=== PATIENT | male | born 1985 | race Hispanic/Latino ===

== ENCOUNTER 2018-02-24 08:34 | Emergency (ER) | payer BC, SELFPAY ==
[2018-02-24] MEDS ORDERED: TETRACAINE HCL 0.5% 2ML OPTH ONE (09:24)
[2018-02-24] MEDS ORDERED: FLUORESCEIN SODIUM 0.6 MG/WRAP ONE (09:24)
--- NOTE | 2018-02-24 10:38 | EDPHYS ---
Physician Documentation [facility] Name: Ok Koehler Age: 32 yrs Sex: Male : 1985 Arrival Date: 02/24/2018 Time: 08:36 Bed 13 Private MD: ED Physician Willy Harper HPI: 02/24 10:35 This 32 yrs old Male presents to ER via Ambulatory with complaints of Chemical pm1 Exposure In Right Eye. 10:35 The patient is experiencing pain, redness, to the right eye. Onset: The pm1 symptoms/episode began/occurred yesterday, at 16:00. Duration: the symptoms are continuous. Aggravated by nothing. Alleviated by eye flush, Rubbing eye. Associated signs and symptoms: Pertinent negatives: vision change. Patient wears glasses. Patient was cleaning a pipe with a water hose. Patient was wearing a helmet, eye charles and protective clothing. The water with chemical splashed to the top of his helmet and dripped down on to his face. Exposure at 1600 yesterday. company reports acid chemicals present in pipe. Patient washed his eyes immediately. No change in vision. Patient has been placing some of his mother's gentamycin eye drops in his right eye. No swelling, complaining of redness to right eye. Historical: - Allergies: 08:44 No Known Allergies; aa5 - PMHx: 08:44 Hypothyroidism; aa5 - PSHx: 08:44 Cholecystectomy; aa5 - Immunization history:: Adult Immunizations unknown. - Social history:: Smoking status: Patient/guardian denies using tobacco. ROS: 10:35 Constitutional: Negative for fever, chills, and weight loss. pm1 10:35 ENT: Negative for injury, pain, and discharge, Neck: Negative for injury, pain, and swelling, Cardiovascular: Negative for chest pain, palpitations, and edema, Respiratory: Negative for shortness of breath, cough, wheezing, and pleuritic chest pain, Abdomen/GI: Negative for abdominal pain, nausea, vomiting, diarrhea, and constipation, Back: Negative for injury and pain, MS/Extremity: Negative for injury and deformity, Skin: Negative for injury, rash, and discoloration, Neuro: Negative for headache, weakness, numbness, tingling, and seizure. 10:35 Eyes: Positive for pain, redness, of the right eye, Negative for blurry vision, swelling, tearing, vision loss, visual disturbance. Exam: 10:35 Visual Acuity: I have reviewed the nursing documentation. pm1 10:35 Constitutional: This is a well developed, well nourished patient who is awake, alert, and in no acute distress. Head/Face: Normocephalic, atraumatic. 10:35 ENT: Nares patent. No nasal discharge, no septal abnormalities noted. Tympanic membranes are normal and external auditory canals are clear. Oropharynx with no redness, swelling, or masses, exudates, or evidence of obstruction, uvula midline. Mucous membranes moist. Neck: Trachea midline, no thyromegaly or masses palpated, and no cervical lymphadenopathy. Supple, full range of motion without nuchal rigidity, or vertebral point tenderness. No Meningismus. Chest/axilla: Normal chest wall appearance and motion. Nontender with no deformity. No lesions are appreciated. Cardiovascular: Regular rate and rhythm with a normal S1 and S2. No gallops, murmurs, or rubs. Normal PMI, no JVD. No pulse deficits. Respiratory: Lungs have equal breath sounds bilaterally, clear to auscultation and percussion. No rales, rhonchi or wheezes noted. No increased work of breathing, no retractions or nasal flaring. Abdomen/GI: Soft, non-tender, with normal bowel sounds. No distension or tympany. No guarding or rebound. No evidence of tenderness throughout. Skin: Warm, dry with normal turgor. Normal color with no rashes, no lesions, and no evidence of cellulitis. MS/ Extremity: Pulses equal, no cyanosis. Neurovascular intact. Full, normal range of motion. 10:35 Eyes: Periorbital structures: appear normal, Pupils: no acute changes, equal, round, and reactive to light and accomodation, Extraocular movements: intact throughout, Conjunctiva: injected, in the right eye, Corneas: abrasion, is not appreciated, foreign body, is not appreciated, a fluorescein strip employed to appreciate the findings, Lids and lashes: appear normal, no acute changes, no evidence of trauma. 10:35 Neuro: Orientation: is normal, Motor: is normal, moves all fours, Gait: is steady, at a normal pace, without difficulty. 10:35 Eyes: Examination of the other eye reveals no obvious gross abnormality, Prior to pm1 irrigation of right eye with normal saline 500 mL, pH of right eye 7.0. Vital Signs: 08:45 BP 131 / 85; Pulse 89; Resp 16 S; Temp 98.3(TE); Pulse Ox 97% on R/A; aa5 Visual Acuity: 09:28 Left Eye Visual acuity 20/15, ; Right Eye Visual acuity 20/15, ; Both Eyes Visual ph acuity 20/15; With Lenses; MDM: 08:50 Patient medically screened. pm1 10:35 Data reviewed: vital signs. Data interpreted: Pulse oximetry: on room air is 97 %. pm1 Interpretation: normal. Counseling: I had a detailed discussion with the patient and/or guardian regarding: the historical points, exam findings, and any diagnostic results supporting the discharge/admit diagnosis, the need for outpatient follow up, an opthalmologist, to return to the emergency department if symptoms worsen or persist or if there are any questions or concerns that arise at home. 02/24 09:04 Order name: Visual Acuity; Complete Time: 09:26 pm1 02/24 09:04 Order name: Eye Tray; Complete Time: 09:27 pm1 02/24 09:04 Order name: Fluoresene Opth strip; Complete Time: 09:28 pm1 Administered Medications: 09:40 Drug: Tetracaine Drops 0.5 % 1 drops Route: Ophthalmic; Site: right eye; ph 10:53 Not Given (Patient Refused): Tetanus-Diphtheria Toxoid Adult 0.5 ml IM once ph Disposition: 13:02 Co-signature as Attending Physician, Willy Harper MD I agree with the assessment and abida plan of care. Disposition: 02/24/18 10:38 Discharged to Home. Impression: Ocular pain, right eye - chemical exposure to right eye. - Condition is Stable. - Discharge Instructions: Conjunctivitis, Chemical. - Prescriptions for Gentamicin 0.3 % (3 mg/gram) Ophthalmic Ointment - apply 0.5 inch by OPHTHALMIC route every 8 hours; 1 tube. - Work release form, Medication Reconciliation Form, Thank You Letter, Antibiotic Education form. - Follow up: Ramon Galo MD; When: 1 - 2 days; Reason: Recheck today's complaints, Continuance of care, Re-evaluation by your physician. - Problem is new. - Symptoms have improved. Signatures: Willy Harper MD MD cha Calderon, Audri, RN RN aa5 Isadora Gamble RN RN ph Alvin Medrano, CHERIE TUBULAR SPLITTING MACHINE TENDER pm1 Corrections: (The following items were deleted from the chart) 10:54 10:38 02/24/2018 10:38 Discharged to Home. Impression: Ocular pain, right eye - ph chemical exposure to right eye. Condition is Stable. Forms are Medication Reconciliation Form, Thank You Letter, Antibiotic Education, Prescription Opioid Use. Follow up: Ramon Galo; When: 1 - 2 days; Reason: Recheck today's complaints, Continuance of care, Re-evaluation by your physician. Problem is new. Symptoms have improved. pm1
--- NOTE | 2018-02-24 10:38 | ER ---
Nurse's Notes [facility] Name: Ok Koehler Age: 32 yrs Sex: Male : 1985 Arrival Date: 02/24/2018 Time: 08:36 Bed 13 Private MD: Diagnosis: Ocular pain, right eye-chemical exposure to right eye Presentation: 02/24 08:42 Presenting complaint: Patient states: "I was hydro blasting at work and I got some kind aa5 of acid into my right eye". Pt reports incident occurred yesterday around 1600. Pt states "sometimes my vision is blurry because I feel like there is something in it". Transition of care: patient was not received from another setting of care. Onset of symptoms was February 2018. Initial Sepsis Screen: Does the patient meet any 2 criteria? No. Patient's initial sepsis screen is negative. Does the patient have a suspected source of infection? No. Patient's initial sepsis screen is negative. Care prior to arrival: None. 08:42 Method Of Arrival: Ambulatory aa5 08:42 Acuity: WANDY 3 aa5 Historical: - Allergies: 08:44 No Known Allergies; aa5 - PMHx: 08:44 Hypothyroidism; aa5 - PSHx: 08:44 Cholecystectomy; aa5 - Immunization history:: Adult Immunizations unknown. - Social history:: Smoking status: Patient/guardian denies using tobacco. Screenin:57 Abuse screen: Denies threats or abuse. Denies injuries from another. Nutritional ph screening: No deficits noted. Tuberculosis screening: No symptoms or risk factors identified. Fall Risk None identified. Assessment: 08:56 General: Appears in no apparent distress. comfortable, Behavior is calm, cooperative, ph appropriate for age. Pain: Complains of pain in right eye. Neuro: Level of Consciousness is awake, alert, obeys commands, Oriented to person, place, time, situation. Cardiovascular: Capillary refill < 3 seconds Patient's skin is warm and dry. Respiratory: Airway is patent Respiratory effort is even, unlabored. GI: No signs and/or symptoms were reported involving the gastrointestinal system. EENT: Reports blurred vision in right eye pain in right eye. Derm: Skin is intact, is healthy with good turgor, Skin is pink, warm \\T\\ dry. Musculoskeletal: Circulation, motion, and sensation intact. Range of motion: limited in all extremities. 10:15 Reassessment: Patient appears in no apparent distress at this time. Patient and/or ph family updated on plan of care and expected duration. Pain level reassessed. Patient is alert, oriented x 3, equal unlabored respirations, skin warm/dry/pink. Pt resting quietly w/ eyes closed, respirations even and unlabored, awakens easily, mother at bedside. Vital Signs: 08:45 BP 131 / 85; Pulse 89; Resp 16 S; Temp 98.3(TE); Pulse Ox 97% on R/A; aa5 Visual Acuity: 09:28 Left Eye Visual acuity 20/15, ; Right Eye Visual acuity 20/15, ; Both Eyes Visual ph acuity 20/15; With Lenses; ED Course: 08:36 Patient arrived in ED. sb2 08:43 Isadora Gamble RN is Primary Nurse. ph 08:44 Triage completed. aa5 08:44 Arm band placed on. aa5 08:50 Alvin Medrano NP is PHCP. pm1 08:50 Willy Harper MD is Attending Physician. pm1 08:57 Patient has correct armband on for positive identification. Placed in gown. Bed in low ph position. Call light in reach. Side rails up X 1. Pulse ox on. NIBP on. 09:50 Assist provider with eye exam of right eye. using fluorescein stain, Performed by jamal Medrano NP Patient tolerated well. 10:36 Ramon Galo MD is Referral Physician. pm1 10:40 Patient did not have IV access during this emergency room visit. ph Administered Medications: 09:40 Drug: Tetracaine Drops 0.5 % 1 drops Route: Ophthalmic; Site: right eye; ph 10:53 Not Given (Patient Refused): Tetanus-Diphtheria Toxoid Adult 0.5 ml IM once ph Outcome: 10:38 Discharge ordered by . pm1 10:53 Discharged to home ambulatory, with family. ph 10:53 Condition: good 10:53 Discharge instructions given to patient, Instructed on discharge instructions, follow up and referral plans. medication usage, Demonstrated understanding of instructions, follow-up care, medications, Prescriptions given X 1. 10:54 Patient left the ED. ph Signatures: Nicolasa Tran RN RN [facility] Isadora Gamble RN RN Alvin Medrano NP BLOW MOULDING MACHINE OPERATOR pm1 Dana Beal sb2
[2018-02-24 10:58] VITALS: BP 131/85; TEMP 98.3; O2SAT 97
== END 2018-02-24 10:54 | disposition home or self-care (01) ==
LOC: ER 08:34
DX: H57.11 Ocular pain, right eye (principal); Z57.5 Occupational exposure to toxic agents in other industries
CPT/HCPCS: 99284

== ENCOUNTER 2019-01-26 00:25 | Emergency (ER) | payer OTHER ==
[2019-01-26] MEDS ORDERED: NA CHLORIDE 0.9% 1,000 ML ONE ×2 (00:57→02:40)
[2019-01-26 01:26] LABS: MPV 9.9 fL (7.6-11.3)
[2019-01-26 01:29] LABS: Absolute Lymphocytes (CBC) 2.1 K/uL (0.7-4.9); Absolute Monocytes 0.3 K/uL (0.1-1.3); Absolute Neutrophil 3.3 K/uL (1.8-8.0); Basophils % 1.2 % (0-1.3); Hematocrit 46.5 % (39.6-49.0); Monocytes % 5.7 % (3.3-12.3)
[2019-01-26 01:45] LABS: Bilirubin Direct 0.1 mg/dL (0-0.2); Potassium 4.1 mmol/L (3.5-5.1); Protein, Total 7.9 g/dL (6.4-8.2)
[2019-01-26] MEDS ORDERED: INSULIN -REGULAR HUMAN 50 UNIT/0.5 ML ML ONE (02:40)
--- NOTE | 2019-01-26 03:19 | EDPHYS ---
Physician Documentation [facility] Name: Ok Koehler Age: 33 yrs Sex: Male : 1985 Arrival Date: 01/26/2019 Time: 00:26 Bed 14 Private MD: Rehan Hernandez E ED Physician Willy Harper HPI: 01/26 01:34 This 33 yrs old Male presents to ER via Ambulatory with complaints of Blood snw Sugar Problem. 01:34 Onset: The symptoms/episode began/occurred suddenly. Associated signs and symptoms: snw Pertinent positives: polyuria, polydipsia. Modifying factors: The patient symptoms are alleviated by nothing. The patient has not experienced similar symptoms in the past. It is unknown whether or not the patient has recently seen a physician. Historical: - Allergies: 00:28 No Known Allergies; jb4 - Home Meds: 00:28 Synthroid Oral [Active]; jb4 - PMHx: 00:28 Hypothyroidism; jb4 - PSHx: 00:28 Cholecystectomy; jb4 - Immunization history:: Adult Immunizations unknown. - Social history:: Smoking status: Patient/guardian denies using tobacco, Patient/guardian denies using alcohol. - Ebola Screening: : No symptoms or risks identified at this time. ROS: 01:34 Constitutional: Negative for fever, chills, and weight loss. snw 01:34 Eyes: Negative for injury, pain, redness, and discharge, ENT: Negative for injury, pain, and discharge, Neck: Negative for injury, pain, and swelling, Cardiovascular: Negative for chest pain, palpitations, and edema, Respiratory: Negative for shortness of breath, cough, wheezing, and pleuritic chest pain, Abdomen/GI: Negative for abdominal pain, nausea, vomiting, diarrhea, and constipation, Back: Negative for injury and pain. 01:34 MS/Extremity: Negative for injury and deformity, Skin: Negative for injury, rash, and discoloration, Neuro: Negative for headache, weakness, numbness, tingling, and seizure. 01:34 Constitutional: Positive for fatigue, malaise. 01:34 : Positive for urinary frequency. Exam: 01:36 Constitutional: This is a well developed, well nourished patient who is awake, alert, snw and in no acute distress. Head/Face: Normocephalic, atraumatic. Eyes: Pupils equal round and reactive to light, extra-ocular motions intact. Lids and lashes normal. Conjunctiva and sclera are non-icteric and not injected. Cornea within normal limits. Periorbital areas with no swelling, redness, or edema. ENT: Nares patent. No nasal discharge, no septal abnormalities noted. Tympanic membranes are normal and external auditory canals are clear. Oropharynx with no redness, swelling, or masses, exudates, or evidence of obstruction, uvula midline. Mucous membranes moist. Neck: Trachea midline, no thyromegaly or masses palpated, and no cervical lymphadenopathy. Supple, full range of motion without nuchal rigidity, or vertebral point tenderness. No Meningismus. Chest/axilla: Normal chest wall appearance and motion. Nontender with no deformity. No lesions are appreciated. 01:36 Respiratory: Lungs have equal breath sounds bilaterally, clear to auscultation and percussion. No rales, rhonchi or wheezes noted. No increased work of breathing, no retractions or nasal flaring. Abdomen/GI: Soft, non-tender, with normal bowel sounds. No distension or tympany. No guarding or rebound. No evidence of tenderness throughout. Back: No spinal tenderness. No costovertebral tenderness. Full range of motion. Skin: Warm, dry with normal turgor. Normal color with no rashes, no lesions, and no evidence of cellulitis. MS/ Extremity: Pulses equal, no cyanosis. Neurovascular intact. Full, normal range of motion. Neuro: Awake and alert, GCS 15, oriented to person, place, time, and situation. Cranial nerves II-XII grossly intact. Motor strength 5/5 in all extremities. Sensory grossly intact. Cerebellar exam normal. Normal gait. Psych: Awake, alert, with orientation to person, place and time. Behavior, mood, and affect are within normal limits. 01:36 Cardiovascular: Rate: tachycardic, Rhythm: regular. Vital Signs: 00:28 BP 146 / 102; Pulse 96; Resp 16; Temp 99.0(O); Pulse Ox 95% on R/A; Weight 104.33 kg jb4 (R); Height 5 ft. 10 in. (177.80 cm) (R); Pain 0/10; 01:30 BP 128 / 92; Pulse 85; Resp 16; Pulse Ox 95% on R/A; jb4 02:30 BP 139 / 97; Pulse 98; Resp 16; Pulse Ox 87% on R/A; jb4 03:45 BP 123 / 88; Pulse 84; Resp 16; Pulse Ox 96% on R/A; jb4 00:28 Body Mass Index 33.00 (104.33 kg, 177.80 cm) jb4 MDM: 00:38 Patient medically screened. snw 03:19 Data reviewed: vital signs, nurses notes. Data interpreted: Pulse oximetry: on room air snw is 98 %. Interpretation: acceptable. Counseling: I had a detailed discussion with the patient and/or guardian regarding: the historical points, exam findings, and any diagnostic results supporting the discharge/admit diagnosis, lab results, radiology results, the need for outpatient follow up, to return to the emergency department if symptoms worsen or persist or if there are any questions or concerns that arise at home. Special discussion: I have referred the patient to see his PCP for further evaluation of high blood pressure. Based on the history and exam findings, there is no indication for further emergent testing or inpatient evaluation. I discussed with the patient/guardian the need to see the primary care provider for further evaluation of the symptoms. 01/26 00:38 Order name: CBC with Diff snw 01/26 00:38 Order name: Chem 7; Complete Time: 02:15 snw 01/26 00:38 Order name: Blood Culture Adult (2) snw 01/26 00:38 Order name: Lipase; Complete Time: 02:15 snw 01/26 00:38 Order name: Osmolality, Serum; Complete Time: 02:15 snw 01/26 00:38 Order name: CPK; Complete Time: 02:15 snw 01/26 00:38 Order name: LFT's; Complete Time: 02:15 snw 01/26 00:38 Order name: CBC with Automated Diff; Complete Time: 01:36 EDMS 01/26 00:44 Order name: TSH; Complete Time: 02:42 snw 01/26 02:16 Order name: Misc. Order: hourly FSBS; Complete Time: 02:39 snw Administered Medications: 01:07 Drug: NS 0.9% 1000 ml Route: IV; Rate: 1 bolus; Site: right antecubital; jb4 02:00 Follow up: Response: No adverse reaction; IV Status: Completed infusion; IV Intake: jb4 1000ml 02:39 Drug: NS 0.9% 1000 ml Route: IV; Rate: 1 bolus; Site: right antecubital; jb4 04:00 Follow up: Response: No adverse reaction; IV Status: Completed infusion; IV Intake: jb4 1000ml 02:46 Drug: Insulin Regular Human 10 units {Co-Signature: kelsey (John Clay RN).} Route: IVP; bb Site: right antecubital; 03:28 Follow up: Response: No adverse reaction; Blood sugar is lowered jb4 Point of Care Testing: Blood Glucose: 00:32 Blood Glucose: 438 mg/dL; oe 02:30 Blood Glucose: 367 mg/dL; jb4 03:28 Blood Glucose: 294 mg/dL; jb4 Ranges: Critical Glucose Levels:Adult <50 mg/dl or >400 mg/dl <40 mg/dl or >180 mg/dl Disposition: 01/26/19 03:18 Discharged to Home. Impression: Hyperglycemia, unspecified. - Condition is Stable. - Discharge Instructions: Diabetes and Sick Day Management, Hyperglycemia, Blood Glucose Monitoring, Adult, Diabetes Mellitus and Food, Tips for Eating Away From Home If You Have Diabetes, How to Avoid Diabetes Problems. - Prescriptions for Glucophage 500 mg Oral Tablet - take 1 tablet by ORAL route every 12 hours; 20 tablet. - Work release form, Family Work Release, Medication Reconciliation Form, Thank You Letter, Antibiotic Education, Prescription Opioid Use form. - Follow up: Emergency Department; When: As needed; Reason: Worsening of condition. Follow up: Rehan Hernandez; When: 1 - 2 days; Reason: Recheck today's complaints, Continuance of care, Re-evaluation by your physician. Signatures: Dispatcher [employer] Janett Ricardo, RODNEY-C MISCELLANEOUS MACHINE OPERATOR-Cs[employer] Colleen Antunez RN RN bb Bryson, James, RN RN jb4 James Bryson RN jb4 Corrections: (The following items were deleted from the chart) 04:03 03:18 01/26/2019 03:18 Discharged to Home. Impression: Hyperglycemia, unspecified. jb4 Condition is Stable. Discharge Instructions: Diabetes and Sick Day Management, Hyperglycemia, Blood Glucose Monitoring, Adult, Diabetes Mellitus and Food, Tips for Eating Away From Home If You Have Diabetes, How to Avoid Diabetes Problems. Prescriptions for Glucophage 500 mg Oral Tablet - take 1 tablet by ORAL route every 12 hours; 20 tablet. and Forms are Work release form, Medication Reconciliation Form, Thank You Letter, Antibiotic Education, Prescription Opioid Use. Follow up: Emergency Department; When: As needed; Reason: Worsening of condition. Follow up: Rehan Hernandez; When: 1 - 2 days; Reason: Recheck today's complaints, Continuance of care, Re-evaluation by your physician. snw
--- NOTE | 2019-01-26 03:19 | ER ---
Nurse's Notes [facility] Name: Ok Koehler Age: 33 yrs Sex: Male : 1985 Arrival Date: 01/26/2019 Time: 00:26 Bed 14 Private MD: Rehan Hernandez E Diagnosis: Hyperglycemia, unspecified Presentation: 01/26 00:28 Presenting complaint: Patient states: At home I checked my blood sugar and it was 528, jb4 I have overall just felt weird, and have had increased thirst, urination, and I have noticed some blurry vision that comes and goes. 00:28 Method Of Arrival: Ambulatory jb4 00:28 Transition of care: patient was not received from another setting of care. Onset of jb4 symptoms was January 25, 2019. Risk Assessment: Do you want to hurt yourself or someone else? Patient reports no desire to harm self or others. Initial Sepsis Screen: Does the patient meet any 2 criteria? HR > 90 bpm. Yes Does the patient have a suspected source of infection? No. Patient's initial sepsis screen is negative. Care prior to arrival: None. 00:28 Acuity: WANDY 3 jb4 Triage Assessment: 00:28 General: Appears in no apparent distress. comfortable, Behavior is cooperative, jb4 anxious, Pt reports increased thirst, urination, and intermittent blurry vision. Pain: Denies pain. EENT: No signs and/or symptoms were reported regarding the EENT system. Neuro: Level of Consciousness is awake, alert, obeys commands, Oriented to person, place, time, situation. Cardiovascular: Patient's skin is warm and dry. Respiratory: Airway is patent Respiratory effort is even, unlabored, Respiratory pattern is regular, symmetrical. GI: No signs and/or symptoms were reported involving the gastrointestinal system. : Reports urinary frequency. Derm: Skin is intact, Skin is pink, warm \T\ dry. Musculoskeletal: Circulation, motion, and sensation intact. Historical: - Allergies: 00:28 No Known Allergies; jb4 - Home Meds: 00:28 Synthroid Oral [Active]; jb4 - PMHx: 00:28 Hypothyroidism; jb4 - PSHx: 00:28 Cholecystectomy; jb4 - Immunization history:: Adult Immunizations unknown. - Social history:: Smoking status: Patient/guardian denies using tobacco, Patient/guardian denies using alcohol. - Ebola Screening: : No symptoms or risks identified at this time. Screenin:28 Abuse screen: Denies threats or abuse. Nutritional screening: No deficits noted. jb4 Tuberculosis screening: No symptoms or risk factors identified. Fall Risk None identified. Assessment: 00:28 General: see triage assessment.. jb4 01:30 Reassessment: Patient appears in no apparent distress at this time. Patient and/or jb4 family updated on plan of care and expected duration. Pain level reassessed. Patient is alert, oriented x 3, equal unlabored respirations, skin warm/dry/pink. 02:30 Reassessment: Patient appears in no apparent distress at this time. Patient and/or jb4 family updated on plan of care and expected duration. Pain level reassessed. Patient is alert, oriented x 3, equal unlabored respirations, skin warm/dry/pink. 03:30 Reassessment: Patient appears in no apparent distress at this time. Patient and/or jb4 family updated on plan of care and expected duration. Pain level reassessed. Patient is alert, oriented x 3, equal unlabored respirations, skin warm/dry/pink. Pt waiting for fluid bolus to finish prior to discharge. 04:00 Reassessment: Patient appears in no apparent distress at this time. Patient and/or jb4 family updated on plan of care and expected duration. Pain level reassessed. Patient is alert, oriented x 3, equal unlabored respirations, skin warm/dry/pink. Pt walked out of ED, was discharged with family, verbalized understanding of instructions on medication and follow up. Vital Signs: 00:28 BP 146 / 102; Pulse 96; Resp 16; Temp 99.0(O); Pulse Ox 95% on R/A; Weight 104.33 kg jb4 (R); Height 5 ft. 10 in. (177.80 cm) (R); Pain 0/10; 01:30 BP 128 / 92; Pulse 85; Resp 16; Pulse Ox 95% on R/A; jb4 02:30 BP 139 / 97; Pulse 98; Resp 16; Pulse Ox 87% on R/A; jb4 03:45 BP 123 / 88; Pulse 84; Resp 16; Pulse Ox 96% on R/A; jb4 00:28 Body Mass Index 33.00 (104.33 kg, 177.80 cm) jb4 ED Course: 00:26 Patient arrived in ED. do 00:28 Rehan Hernandez MD is Private Physician. do 00:28 John Clay, RN is Primary Nurse. jb4 00:28 Arm band placed on left wrist. jb4 00:28 Patient has correct armband on for positive identification. Placed in gown. Bed in low jb4 position. Call light in reach. Side rails up X 1. Pulse ox on. NIBP on. 00:32 Janett Storm FNP-C is PHCP. snw 00:32 Willy Harper MD is Attending Physician. snw 00:36 Triage completed. jb4 01:08 Inserted saline lock: 20 gauge in right antecubital area, using aseptic technique. oe Blood collected. 01:52 Notified Nurse Practitioner and/or Physician Product Owner of a critical lab result(s), BGL jb4 493. 03:18 Rehan Hernandez MD is Referral Physician. snw 04:00 No provider procedures requiring assistance completed. IV discontinued, intact, jb4 bleeding controlled. Administered Medications: 01:07 Drug: NS 0.9% 1000 ml Route: IV; Rate: 1 bolus; Site: right antecubital; jb4 02:00 Follow up: Response: No adverse reaction; IV Status: Completed infusion; IV Intake: jb4 1000ml 02:39 Drug: NS 0.9% 1000 ml Route: IV; Rate: 1 bolus; Site: right antecubital; jb4 04:00 Follow up: Response: No adverse reaction; IV Status: Completed infusion; IV Intake: jb4 1000ml 02:46 Drug: Insulin Regular Human 10 units {Co-Signature: jb4 (John Clay RN).} Route: IVP; bb Site: right antecubital; 03:28 Follow up: Response: No adverse reaction; Blood sugar is lowered jb4 Point of Care Testing: Blood Glucose: 00:32 Blood Glucose: 438 mg/dL; oe 02:30 Blood Glucose: 367 mg/dL; jb4 03:28 Blood Glucose: 294 mg/dL; jb4 Ranges: Intake: 02:00 IV: 1000ml; Total: 1000ml. jb4 04:00 IV: 1000ml; Total: 2000ml. jb4 Outcome: 03:18 Discharge ordered by . snw 04:00 Discharged to home ambulatory, with family. jb4 04:00 Condition: stable 04:00 Discharge instructions given to patient, Instructed on discharge instructions, follow up and referral plans. medication usage, Demonstrated understanding of instructions, follow-up care, medications, Prescriptions given X 1. 04:03 Patient left the ED. jb4 Signatures: Janett Storm, COMMERCIAL LITIGATION ASSOCIATE-C COMMERCIAL LITIGATION ASSOCIATE-Csnw Colleen Antunez RN RN bb Ogletree, Danielle do Bryson, James, RN RN jb4 Favian Medellin RN jb4 Corrections: (The following items were deleted from the chart) 03:54 03:30 Reassessment: Patient appears in no apparent distress at this time. Patient jb4 and/or family updated on plan of care and expected duration. Pain level reassessed. Patient is alert, oriented x 3, equal unlabored respirations, skin warm/dry/pink. jb4
[2019-01-26 04:10] VITALS: TEMP 99
[2019-01-26 04:14] VITALS: BP 123/88; O2SAT 96
== END 2019-01-26 04:03 | disposition home or self-care (01) ==
LOC: ER 00:25
DX: R73.9 Hyperglycemia, unspecified (principal); E03.9 Hypothyroidism, unspecified
CPT/HCPCS: 36415; 80048; 80076; 82550; 82962; 83690; 83930; 84443; 85025; 87040; 96361; 96374; 99284; J7030